=== PATIENT | male | born 1985 | race African-American/Black ===

== ENCOUNTER 2023-07-12 19:12 | Emergency (ER) | payer MEDICAID ==
[~2023-07-12] VITALS: Ht 182.9 cm; Wt 83.5 kg
[2023-07-12 19:28] VITALS: BP_SYST 177; PULSE 100; RESP 18; TEMP 99; O2SAT 99
[2023-07-12 19:46] VITALS: BP_SYST 177; PULSE 100; RESP 18; TEMP 99; O2SAT 99
== END 2023-07-12 19:46 | disposition home or self-care (01) ==
LOC: SED 19:12
DX: Z02.89 Encounter for other administrative examinations (principal); Z79.899 Other long term (current) drug therapy
CPT/HCPCS: 99283